=== PATIENT | male | born 1965 | race Caucasian/White ===

== ENCOUNTER 2016-10-15 06:18 | Emergency (ER) | payer OTHER ==
[2016-10-15 08:02] LABS: BASOPHIL 0.1 % (0-2); EOSINOPHIL 1.5 % (0-5); HCT 42.1 % (42.0-52.0); HGB 14.6 g/dl (13.2-18.0); LYMPHOCYTE 20.6 % (15-48); MCH 29.7 pg (25.0-31.0); MCHC 34.7 g/dL (32.0-36.0); MCV 85.6 fL (78.0-100.0); MONOCYTE 5.9 % (0-12); MPV 10.8 fL (6.0-9.5); NEUTROPHIL 71.9 % (41-80); PLT 224 K/uL (150-400); RBC 4.92 M/uL (4.70-6.00); RDW 13.1 % (11.5-14.0); WBC 8.5 K/uL (4.0-10.5)
[2016-10-15 08:02] LABS: BILIRUBIN NEGATIVE (NEGATIVE); BLOOD 1+ Ery/uL (NEGATIVE); CLARITY CLEAR (CLEAR); COLOR YELLOW (YELLOW); GLUCOSE (U) NORMAL (NORMAL); KETONE (U) NEGATIVE (NEGATIVE); LEUKOCYTES NEGATIVE Leu/uL (NEGATIVE); NITRITE NEGATIVE (NEGATIVE); PROTEIN NEGATIVE (NEGATIVE); UROBILINOGEN 0.2 mg/dL (0.2-1.0)
[2016-10-15 08:09] LABS: SQUAMOUS EPITHELIAL CELLS RARE; URINARY WBC RARE
[2016-10-15 08:15] LABS: AMPHETAMINES NEGATIVE (NEGATIVE); BARBITURATES NEGATIVE (NEGATIVE); BENZODIAZEPINES NEGATIVE (NEGATIVE); COCAINE NEGATIVE (NEGATIVE); MARIJUANA (THC) NEGATIVE (NEGATIVE); METHADONE NEGATIVE (NEGATIVE); TRICYCLIC ANTIDEPRESSANT NEGATIVE (NEGATIVE)
[2016-10-15 08:20] LABS: POTASSIUM 4.4 mmol/L (3.5-5.1)
== END 2016-10-15 09:34 | disposition home or self-care (01) ==
LOC: FER 06:18
PROVIDERS: Emergency Medicine
DX: S01.411A Laceration without foreign body of right cheek and temporomandibular area, initial encounter (principal); S00.93XA Contusion of unspecified part of head, initial encounter; R55 Syncope and collapse; Z23 Encounter for immunization; W18.30XA Fall on same level, unspecified, initial encounter; W22.03XA Walked into furniture, initial encounter; Y92.002 Bathroom of unspecified non-institutional (private) residence as the place of occurrence of the external cause
CPT/HCPCS: 36415; 70450; 80048; 80305; 81001; 84484; 85025; 90471; 90715; 93005